=== PATIENT | male | born 1935 | race African-American/Black ===

== ENCOUNTER 2021-02-13 07:50 | Emergency (ER) | payer MEDICARE, OTHER ==
[~2021-02-13] VITALS: Ht 182.9 cm; Wt 105.0 kg
[~2021-02-13 07:50] MED LIST: CLOP75TA33 PO; HYDR-4134 PO; HYDR50TA PO; LOSA50TA41 PO; METF-416 PO; POTA10CA42 PO; SIMV-43 PO
[2021-02-13 11:29] LABS: BASOPHILS % 0.3 % (0.0-2.0); EOSINOPHILS % 0.2 % (0.0-5.0); HEMOGLOBIN. 11.5 g/dL (14.0-18.0); LYMPHOCYTES % 15.6 % (20.0-50.0); MEAN CORPUSCULAR HEMOGLOBIN 26.6 pg (28.0-32.0); MEAN CORPUSCULAR VOLUME 85.7 fL (80.0-94.0); MEAN PLATELET VOLUME 7.3 fl (7.4-10.4); MONOCYTES % 9.2 % (2.0-8.0); NEUTROPHILS % 74.7 % (40.0-76.0); PLATELET 250 x1000/uL (130-400); RED BLOOD CELL COUNT 4.32 mill/uL (4.7-6.1); RED CELL DISTRIBUTION WIDTH 15.2 % (11.6-14.6)
[2021-02-13 11:30] LABS: CHLORIDE 109 mEq/L (98-107)
[2021-02-13] MEDS ORDERED: ONDANSETRON 4MG ODT PO ONE (11:45)
[2021-02-13 12:54] VITALS: BP 136/61
[2021-02-13] MEDS ORDERED: SODIUM CHLORIDE 0.9% 1,000 ML IV ONE (13:45)
[2021-02-13 15:03] LABS: CLARITY URINE CLEAR (CLEAR); COLOR URINE YELLOW (YELLOW); KETONES URINE NEGATIVE (NEGATIVE); LEUKOCYTE ESTERASE URINE NEGATIVE (NEGATIVE); NITRITE URINE NEGATIVE (NEGATIVE); OCCULT BLOOD URINE NEGATIVE (NEGATIVE); PROTEIN URINE NEGATIVE (NEGATIVE); SPECIFIC GRAVITY URINE 1.017 (1.005-1.030); UROBILINOGEN URINE 0.2 E.U./dL (0.2-1.0)
[2021-02-13] MEDS ORDERED: TOPUD PO (16:05)
[2021-02-13] MEDS ORDERED: IBUP-2028 MT (16:06)
== END 2021-02-13 18:25 | disposition home or self-care (01) ==
LOC: ER 07:50
DX: U07.1 COVID-19 (principal); I10 Essential (primary) hypertension; E11.9 Type 2 diabetes mellitus without complications; E78.00 Pure hypercholesterolemia, unspecified; I69.998 Other sequelae following unspecified cerebrovascular disease; H54.7 Unspecified visual loss; Z85.00 Personal history of malignant neoplasm of unspecified digestive organ; Z98.890 Other specified postprocedural states; Z79.899 Other long term (current) drug therapy; Z79.84 Long term (current) use of oral hypoglycemic drugs; Z88.8 Allergy status to other drugs, medicaments and biological substances
CPT/HCPCS: 36415; 71045; 80053; 81003; 83605; 83690; 83880; 84484; 85025; 87426; 93005; 96360; 99285; J7030; Q0162

== ENCOUNTER 2023-08-23 06:18 | Emergency (ER) | payer MEDICARE ==
[~2023-08-23] VITALS: Ht 177.8 cm; Wt 95.0 kg
[~2023-08-23 06:18] MED LIST changes: -HYDR-4134 PO; +HYDR25TA78 PO; +IBUP-2028 MT; -POTA10CA42 PO; +POTA10CA83 PO; +TOPUD PO
[2023-08-23 06:25] VITALS: O2SAT 98
[2023-08-23 07:40] LABS: BASOPHILS % 0.5 % (0.0-2.0); EOSINOPHILS % 1.3 % (0.0-5.0); HEMATOCRIT. 32.7 % (42.0-52.0); HEMOGLOBIN. 10.6 g/dL (14.0-18.0); LYMPHOCYTES % 17.5 % (20.0-50.0); MEAN CORPUSCULAR HEMOGLOBIN 29.9 pg (28.0-32.0); MEAN CORPUSCULAR HGB CONC 32.5 g/dL (31.0-37.0); MEAN CORPUSCULAR VOLUME 92.1 fL (80.0-94.0); MEAN PLATELET VOLUME 7.4 fl (7.4-10.4); MONOCYTES % 11.1 % (2.0-8.0); NEUTROPHILS % 69.6 % (40.0-76.0); PLATELET 227 x1000/uL (130-400); RED BLOOD CELL COUNT 3.55 mill/uL (4.7-6.1); RED CELL DISTRIBUTION WIDTH 16.2 % (11.6-14.6); WHITE BLOOD COUNT 6.5 x1000/uL (4.5-11.0)
[2023-08-23 07:49] LABS: PARTIAL THROMBOPLASTIN TIME 24.5 sec (23.4-31.0); PROTHROMBIN TIME 10.8 sec (9.6-11.0)
[2023-08-23 07:53] LABS: CHLORIDE 108 mEq/L (98-107); POTASSIUM 4.4 mEq/L (3.5-5.1); SODIUM 140 mEq/L (136-145)
[2023-08-23 07:54] LABS: CARBON DIOXIDE 23 mEq/L (21-32)
[2023-08-23 07:55] LABS: CALCIUM 9.2 mg/dL (8.7-10.4)
[2023-08-23] MEDS: MECLIZINE 25MG TABLET PO ONE (07:56)
[2023-08-23] MEDS: SODIUM CHLORIDE 0.9% 500 ML IV ONE (07:58)
[2023-08-23 07:59] LABS: CREATININE 1.5 mg/dL (0.6-1.3); GLUCOSE 126 mg/dL (70-105); UREA NITROGEN BLOOD 19 mg/dL (9-23)
[2023-08-23 08:00] LABS: TROPONIN I HIGH SENSITIVITY 5 ng/L (3.0-53)
[2023-08-23 09:20] LABS: CLARITY URINE CLEAR (CLEAR); COLOR URINE YELLOW (YELLOW); GLUCOSE URINE NEGATIVE (NEGATIVE); KETONES URINE NEGATIVE (NEGATIVE); LEUKOCYTE ESTERASE URINE NEGATIVE (NEGATIVE); NITRITE URINE NEGATIVE (NEGATIVE); OCCULT BLOOD URINE 3+ (NEGATIVE); PROTEIN URINE NEGATIVE (NEGATIVE); SPECIFIC GRAVITY URINE 1.014 (1.005-1.030)
[2023-08-23 09:30] LABS: BACTERIA URINE RARE; RBC URINE TNTC /hpf (0-2); SQUAMOUS EPITHELIAL CELL URINE NONE SEEN /lpf (RARE/1+); WBC URINE NONE SEEN /hpf (0-2); YEAST URINE NONE SEEN
[2023-08-23 12:43] VITALS: BP 142/70; PULSE 69; RESP 12; TEMP 98.2
== END 2023-08-23 13:18 | disposition home or self-care (01) ==
LOC: ER 06:18
DX: R42 Dizziness and giddiness (principal); I10 Essential (primary) hypertension; E78.00 Pure hypercholesterolemia, unspecified; E11.9 Type 2 diabetes mellitus without complications; Z88.6 Allergy status to analgesic agent; Z79.899 Other long term (current) drug therapy
CPT/HCPCS: 99285; 96360; 70450; 76770; 71045; 80048; 81003; 83880; 85025; 85610; 85730; 84484; 36415; 93005; J8597; J7040